=== PATIENT | male | born 1975 | race Caucasian/White ===

== ENCOUNTER 2025-02-19 12:39 | Observation (INO) | payer BC, SELFPAY ==
[2025-02-19] VITALS (7 sets, daily range): BP systolic 135–156; BP diastolic 36–96; PULSE 64–95; RESP 16–18; TEMP 36.3–37.2; O2SAT 18–99; BMI 28.0; BMI 27.8
--- NOTE | 2025-02-19 12:52 | EDS_ITS ---
HPI History of Present Illness Chief Complaint: Substance Abuse Narrative Narrative: 49-year-old male presents for detox from alcohol. He states that he drinks 1/5 of hard liquor daily and has so for the last few years. He states has had a problem with alcohol all my life. He has been through detox and rehab previously, but not at this facility. He states his last drink of alcohol was late last night/early this morning. He does not feel shaky and is asymptomatic. He presents with his for alcohol detox. He denies use of other substances. No illicit drug use, non-smoker. PFSH PFSH Allergy/AdvReac Type Severity Reaction Status Date / Time No Known Allergies Allergy Verified 02/19/25 12:40 Social History Smoking Status: Never smoker ROS ROS ED ROS Narrative Negative review of systems, no chest pain, no shortness of breath, no shakiness. No abdominal pain, no nausea or vomiting. No fevers or chills. EXAM Physical Exam Narrative Exam Narrative: Afebrile. Vital signs noted. Nontoxic-appearing. Mild conjunctival injection bilaterally. Cardiovascular examination reveals a regular rate and rhythm, no tachycardia. Lungs are clear to auscultation bilaterally. Abdomen soft, nontender, with normoactive bowel sounds. No guarding or rebound. Neurological examination is nonfocal and nonlateralizing, moves all extremities. No signs of active withdrawal. Const Vital Signs: 02/19/25 12:41 02/19/25 12:51 Temperature 97.4 F L 98.6 F Temperature Source Temporal Oral Pulse Rate 95 86 Respiratory Rate 18 16 Blood Pressure 144/93 H 144/96 H Blood Pressure Mean 110 112 Blood Pressure Source Monitor Blood Pressure Position Sitting Blood Pressure Location Right Arm Pulse Ox 96 98 Oxygen Delivery Method Room Air Room Air MDM MDM MDM Narrative Medical decision making narrative: I do not feel that differential diagnosis is applicable in this case. There are no signs of active withdrawal on his physical examination. Medical screening labs will be obtained. His gives further history that he was in a detox facility 2 weeks ago in [place]. He was there for a week. He was released on Monday with the understanding that he would return on Monday to be sent to rehabilitation. However, she states that whoever he spoke with at that facility and he decided that he did not need rehab and was released back home on Monday and spent the week drinking alcohol. I reviewed his initial laboratory work which has returned thus far. He has normal white count of 5.6 with hemoglobin 15.2 and platelet count normal at 393. I discussed patient with Dr. Bryan for admission to the medical surgical floor. Disposition is admit in stable condition. History & Record Review Discussion w/independent historian: Patient Lab Data Attestation: I reviewed the patient's lab results. Labs: Laboratory Results - last 24 hr 02/19/25 13:11 WBC 5.6 RBC 4.74 Hgb 15.2 Hct 44.3 MCV 93.5 MCH 32.1 H MCHC 34.3 RDW Std Deviation 44.7 H RDW Coeff of Nhan 13.0 Plt Count 393 MPV 8.4 Immature Gran % (Auto) 0.200 Neut % (Auto) 65.3 Lymph % (Auto) 22.8 Shannon % (Auto) 7.2 Eos % (Auto) 1.4 Baso % (Auto) 3.1 H Absolute Neuts (auto) 3.6 Absolute Lymphs (auto) 1.27 Nucleated RBC % 0 Management Discussion w/another healthcare provider: Hospitalist Discharge Plan Dx/Rx/DC Orders Clinical Impression: Desire for detoxification, Alcoholism Disposition Disposition: Acute Care Hospital [facility]
[2025-02-19 13:24] LABS: Absolute Lymphocyte Count 1.27 X10^3/uL (0.83-4.51); Absolute Neutrophil Count 3.6 X10^3/uL (2.0-7.7); Basophil# 0.17 X10^3/uL; Basophil% 3.1 % (0-1); Eosinophil# 0.08 X10^3/uL; Eosinophils% 1.4 % (0-5); Hematocrit 44.3 % (40-54); Hemoglobin 15.2 g/dL (13.0-16.5); Lymphocyte # 1.27 X10^3/ul (0.83-4.51); Lymphocyte % 22.8 % (19-41); Mean Corp Hgb Conc 34.3 g/dL (32-36); Mean Corpuscular Hgb 32.1 pg (27.0-32.0); Mean Corpuscular Volume 93.5 fL (80-94); Mean Platelet Vol. 8.4 fl (6.2-12.0); Monocyte% 7.2 % (0-10); NRBC Flagged by Analyzer 0 % (0-5); Neutrophil # 3.64 X10^3/uL (2.7-7.7); Neutrophil % 65.3 % (47-70); Platelet Count 393 K/mm3 (150-450); RBC Distribution Width SD 44.7 fl (35.1-43.9); Red Blood Count 4.74 M/mm3 (4.6-6.2); White Blood Count 5.6 K/mm3 (4.4-11.0)
[2025-02-19 14:14] LABS: ALB/GLOB Ratio 1.3 RATIO (0.9-2.4); AST(SGOT) 176 U/L (<=37); Alanine Aminotransfer ALT/SGPT 130 U/L (<=46); Albumin, Serum 4.3 g/dL (3.5-5.0); Alkaline Phosphatase 132 U/L (40-129); Anion Gap 24 (5-15); BUN 10 mg/dL (4-19); BUN/Creat Ratio 16.8 RATIO (10-20); Calcium,Total 9.5 mg/dL (7.6-11.0); Chloride 96 mmol/L (98-108); Creatinine, Serum 0.58 mg/dL (0.70-1.20); EST Glomerular Filtration Rate 121 (>60); Estimated Creatinine Clearance 187.37 ml/min (50-250); Globulin 3.2 g/dL (2.2-4.2); Glucose 79 mg/dL (70-99); Potassium 3.9 mmol/L (3.3-5.1); Protein, Total 7.4 g/dL (5.9-8.4); Sodium Level 139 mmol/L (133-145)
--- NOTE | 2025-02-19 14:17 | HP.PCM.HOS_ITS ---
HPI - General General Date of Admission: 02/19/25 HPI Narrative SAMUEL MCDANIEL, is a 49 M who presents to the hospital requesting detox from alcohol. He was at a detox center about a week and a half ago and was discharged on a Monday and told to follow-up on Monday for inpatient rehab however when he went for his admission to inpatient rehab he was drunk and so they denied him placement. He has been drinking all last week and presented today to go through detox and placement again. He states that he is ready to quit alcohol but he cannot spend 30 days in a rehab center. He has never had any mental health or behavioral health therapy. [facility] Home Medications ?Medication ?Instructions ?Recorded ?Last Taken ?Type naltrexone 50 mg tablet 50 mg PO DAILY CRAVINGS 08/0702/19/25 History Allergy/AdvReac Type Severity Reaction Status Date / Time No Known Allergies Allergy Verified 02/19/25 12:40 Family History no significant family his no significant family history Surgical History (Updated 02/19/25 @ 14:[address] Philipp Bryan MD) H/O umbilical hernia repair Social History Smoking Status: Never smoker ROS Constitutional Constitutional: Denies chills, fatigue, fever(s) or malaise Eyes Eyes: Denies blurry vision ENT HEENT: Denies headache(s) or nasal discharge Cardiovascular Cardiovascular: Denies chest pain, dyspnea on exertion or syncope Respiratory/Chest Respiratory/Chest: Denies cough, shortness of breath at rest or shortness of breath with exertion Gastrointestinal Gastrointestinal: Denies constipation, diarrhea, nausea or vomiting Genitourinary Genitourinary: Denies dysuria Neurologic Neurologic: Denies focal weakness, numbness or tremor(s) Psychiatric Psychiatric: Reports anxiety; Denies depression Vital Signs Vital Signs Vital Signs: 02/19/25 12:41 02/19/25 12:51 02/19/25 13:39 Temperature 97.4 F L 98.6 F 98.7 F Temperature Source Temporal Oral Oral Pulse Rate 95 86 64 Respiratory Rate 18 16 18 Blood Pressure 144/93 H 144/96 H 149/61 H Blood Pressure Mean 110 112 90 Blood Pressure Source Monitor Blood Pressure Position Sitting Blood Pressure Location Right Arm Pulse Ox 96 98 98 Oxygen Delivery Method Room Air Room Air Room Air 02/19/25 14:00 Temperature Temperature Source Pulse Rate Respiratory Rate Blood Pressure Blood Pressure Mean Blood Pressure Source Blood Pressure Position Blood Pressure Location Pulse Ox 99 Oxygen Delivery Method Room Air Weight Weight: 207 lb 1.6 oz Body Mass Index (BMI) 28.0 Physical Exam Narrative General: Alert, Oriented x3, Cooperative, restless HEENT: Atraumatic, PERRLA, EOMI, Normocephalic Oral: Moist Mucosa Neck: Supple, No JVD Lungs: Clear to auscultation, Normal air movement, No rhonchi, No wheeze, No rales Cardiovascular: Regular rate, Regular Rhythm, Normal S1, Normal S2, No murmurs Abdomen: Soft, Non Tender, Non-Distended, No Hepato-splenomegaly Extremities: No edema, Capillary Refill Less than 3 Seconds Skin: No rashes, No breakdown Musculoskeletal: No Tenderness to Palpation of Joints or Extremities Neurological: No focal neurological deficits, Motor Exam 5/5 strength throughout, Sensory exam intact to light touch and pain Psych/Mental Status: Flat, anxious, tearful Results Lab / Micro Data 02/19/25 13:11 02/19/25 13:11 Labs: Laboratory Results - last 24 hr 02/19/25 13:11: WBC 5.6, RBC 4.74, Hgb 15.2, Hct 44.3, MCV 93.5, MCH 32.1 H, MCHC 34.3, RDW Std Deviation 44.7 H, RDW Coeff of Nhan 13.0, Plt Count 393, MPV 8.4, Immature Gran % (Auto) 0.200, Neut % (Auto) 65.3, Lymph % (Auto) 22.8, [place] % (Auto) 7.2, Eos % (Auto) 1.4, Baso % (Auto) 3.1 H, Absolute Neuts (auto) 3.6, Absolute Lymphs (auto) 1.27, Nucleated RBC % 0, Sodium 139, Potassium 3.9, C hloride 96 L, Carbon Dioxide 19.0 L, Anion Gap 24 H, BUN 10, Creatinine 0.58 L, Estim Creat Clear Calc 187.37, Est GFR (MDRD) Non-Af 121, BUN/Creatinine Ratio 16.8, Glucose 79, Calcium 9.5, Total Bilirubin 0.90, AST 176 H, ALT 130 H, A lkaline Phosphatase 132 H, Total Protein 7.4, Albumin 4.3, Globulin 3.2, Albumin/Globulin Ratio 1.3, Ethyl Alcohol 153.0 H Assessment & Plan Assessment/Plan (1) Acute alcohol intoxication: PLAN: Plan 1. Alcohol abuse requesting detox/elevated LFTs ? He was to try to get sober this time but he does not want to spend 30 days in an inpatient rehab facility ? Will have him follow-up with 180 to develop a discharge plan ? LFTs are mildly elevated, follow-up as an outpatient likely related to his drinking as he says that he has been drinking the entirety of his adult life ? He drinks about 1/5 of hard liquor a day and his last drink was earlier this morning ? He denies any tobacco abuse or other drugs 2. Report of a pulmonary nodule ? His states that that 2 or 3 months ago the had an x-ray at outside hospital that demonstrated pulmonary nodule ? Discussed the likelihood that it is benign and that he should have repeat imaging in the next 3 to 9 months depending on size of nodule. They will follow-up on outpatient basis DVT: Ambulation 60 minutes was spent on direct patient care, including documentation as well as chart review and collaboration with colleagues Charges/Coding Visit Charges Inpatient E&M: 75690 Init Hosp L2
[2025-02-19] MEDS: Phenobarbital 32.4 MG Tablet 64.8 MG PO ×2 (16:40→20:46)
[2025-02-19] MEDS: hydrOXYzine PAM 25 MG Capsule 50 MG PO (18:28)
[2025-02-19] MEDS: Gabapentin 300 MG Capsule PO (20:47)
[2025-02-19] MEDS: traZODone 100 MG Tablet PO (20:47)
[2025-02-20] MEDS: Phenobarbital 32.4 MG Tablet 64.8 MG PO ×6 (00:50→20:10)
[2025-02-20 00:51] VITALS: BP 107/65; PULSE 56; RESP 16; TEMP 36.6; O2SAT 99
[2025-02-20 04:18] VITALS: BP 116/75; PULSE 52; RESP 16; TEMP 36.5; O2SAT 93
[2025-02-20 08:00] VITALS: BP 102/74; PULSE 52; RESP 15; TEMP 36.4; O2SAT 95
[2025-02-20] MEDS: Thiamine Hydrochloride 100 MG Tablet PO (08:32)
[2025-02-20] MEDS: Folic Acid 1 MG Tablet PO (08:32)
[2025-02-20 09:52] LABS: Amphetamine Urine NEGATIVE (<1000 ng/mL); Barbiturate Urine PRESUMPTIVE POSITIVE (< 200 ng/mL); Benzodiazepine Urine NEGATIVE (< 200 ng/mL); Buprenorphine Urine NEGATIVE (< 200 ng/mL); Cocaine Urine NEGATIVE (< 300 ng/mL); Fentanyl, Urine NEGATIVE; Methadone Urine NEGATIVE (< 300 ng/mL); Opiates Urine NEGATIVE (< 300 ng/mL); Oxycodone, Urine NEGATIVE (< 100 ng/mL); PCP Urine NEGATIVE (< 25 ng/mL); THC Urine PRESUMPTIVE POSITIVE (< 50 ng/mL)
--- NOTE | 2025-02-20 14:00 | CHAPLAIN ---
Type of Pastoral Visit _x__ Initial Visit ___ Follow-up Visit ___ On-call Visit ___ General Patient Visit ___ Spiritual Assessment ___ Family Conference ___ Bereavement ___ Rapid Response ___ Code Blue ___ Other (describe below) Pastoral Care Referral From _x__ Patient ___ Family ___ Nurse ___ Physician ___ Calender Let Off Operator ___ Visitor Services Technician ___ Other (describe below) Sacrament/Intervention _x__ Active listening ___ Anointing ___ Taoist ___ Bereavement ___ Communion ___ Clotilde exploration ___ _x__ Life review ___ Prayer ___ Reconciliation ___ Sacrament of Sick _x__ Supportive presence ___ Wedding ___ Other (describe below) Pastoral Comments patient is welcoming of company and admits to need for detox after trying to do so at home; pt has a supportive that drove him here; pt expresses desire to remain sober but has a limited plan for what is next; pt states that he is not jain and does not consider spiritual help; words of encouragement and active presence given to show support for this patient; good conversation with honesty and care
--- NOTE | 2025-02-20 15:09 | PCM.PN.HOSP ---
Reason for Visit Reason for Visit: Diagnoses Alcohol use, unspecified with intoxication, unspecified (02/19/25) Subjective Subjective Patient reports he is feeling better than he was yesterday, is presently on the phenobarb taper and is tolerating that well Objective Data Objective Data Vital Signs: Vital Signs Temp Pulse Resp BP Pulse Ox O2 Del Method 97.6 F L 52 L 15 102/74 95 Room Air 02/20/25 08:00 02/20/25 08:00 02/20/25 08:00 02/20/25 08:00 02/20/25 08:00 02/20/25 08:38 Oxygen Delivery Method Room Air Weight: 92.9 kg Body Mass Index (BMI) 27.8 Intake & Output: Intake and Output for Last 24 Hours 02/18/25 02/19/25 02/20/25 23:59 23:59 23:59 Intake Total 800 / 800 Balance 800 / 800 Lab / Micro Data 02/19/25 13:11 02/19/25 13:11 Labs: Laboratory Results - last 24 hr 02/19/25 09:05: Urine Opiates Screen NEGATIVE, U Buprenorphine Qual NEGATIVE, Ur Oxycodone Screen NEGATIVE, Urine Methadone Screen NEGATIVE, Urine Fentanyl Screen NEGATIVE, Ur Barbiturates Screen PRESUMPTIVE POSITIVE, Ur Phencyclidine Scrn NEGATIVE, Ur Amphetamines Screen NEGATIVE, U Benzodiazepines Scrn NEGATIVE, Urine Cocaine Screen NEGATIVE, U Cannabinoids Screen PRESUMPTIVE POSITIVE Physical Exam Narrative General: Alert, oriented, no apparent distress HEENT: Atraumatic, normocephalic Eyes: extraocular movements grossly intact Neck: Supple Respiratory: normal respiratory effort Cardiovascular: no edema appreciated GI: nondistended Extremities: Moving all extremities Neuro: No overt focal neurological deficits Psych: Cooperative Assessment & Plan Assessment/Plan (1) Acute alcohol intoxication: PLAN: Plan 1. Alcohol abuse requesting detox/elevated LFTs ? He was to try to get sober this time but he does not want to spend 30 days in an inpatient rehab facility ? Will have him follow-up with 180 to develop a discharge plan ? LFTs are mildly elevated, follow-up as an outpatient likely related to his drinking as he says that he has been drinking the entirety of his adult life ? He drinks about 1/5 of hard liquor a day and his last drink was earlier this morning ? He denies any tobacco abuse or other drugs -02/20: Patient tolerating phenobarb taper, he expressed interest in Vivitrol at discharge, anticipate DC in 1 to 2 days pending patient progress with phenobarb taper and symptoms 2. Report of a pulmonary nodule ? His states that that 2 or 3 months ago the had an x-ray at outside hospital that demonstrated pulmonary nodule ? Discussed the likelihood that it is benign and that he should have repeat imaging in the next 3 to 9 months depending on size of nodule. They will follow-up on outpatient basis -02/20: Outpatient follow-up DVT: Ambulation Charges/Coding Visit Charges Inpatient E&M: 72480 Subs Hosp L1
[2025-02-20 16:00] VITALS: BP 129/74; PULSE 62; RESP 15; TEMP 36.7; O2SAT 98
[2025-02-20 20:07] VITALS: BP 114/79; PULSE 69; RESP 16; TEMP 36.8; O2SAT 100
[2025-02-20] MEDS: 0.9% Saline Lock 10 ML Syringe IV (20:10)
[2025-02-20] MEDS: traZODone 100 MG Tablet PO (20:32)
[2025-02-21] MEDS: Phenobarbital 32.4 MG Tablet 64.8 MG PO ×4 (00:42→12:20)
[2025-02-21 00:43] VITALS: BP 97/72; PULSE 66; RESP 16; TEMP 36.6; O2SAT 95
[2025-02-21 04:18] VITALS: BP 111/78; PULSE 53; RESP 16; TEMP 36.6; O2SAT 95
[2025-02-21 06:36] LABS: ALB/GLOB Ratio 1.5 RATIO (0.9-2.4); AST(SGOT) 79 U/L (<=37); Alanine Aminotransfer ALT/SGPT 72 U/L (<=46); Albumin, Serum 3.7 g/dL (3.5-5.0); Alkaline Phosphatase 108 U/L (40-129); Anion Gap 11 (5-15); BUN 9 mg/dL (4-19); BUN/Creat Ratio 13.4 RATIO (10-20); Calcium,Total 9.3 mg/dL (7.6-11.0); Carbon Dioxide 29.8 mmol/L (21.0-32.0); Chloride 96 mmol/L (98-108); Creatinine, Serum 0.69 mg/dL (0.70-1.20); EST Glomerular Filtration Rate 115 (>60); Estimated Creatinine Clearance 145.27 ml/min (50-250); Globulin 2.5 g/dL (2.2-4.2); Glucose 95 mg/dL (70-99); Potassium 4.3 mmol/L (3.3-5.1); Protein, Total 6.2 g/dL (5.9-8.4); Sodium Level 137 mmol/L (133-145)
[2025-02-21 08:00] VITALS: BP 110/83; PULSE 59; RESP 12; TEMP 36.4; O2SAT 94
[2025-02-21] MEDS: Thiamine Hydrochloride 100 MG Tablet PO (08:03)
[2025-02-21] MEDS: Folic Acid 1 MG Tablet PO (08:03)
[2025-02-21 12:18] VITALS: BP 113/73; PULSE 66; RESP 12; TEMP 36.8; O2SAT 96
--- NOTE | 2025-02-21 12:45 | DCINST_ITS ---
Discharge Instructions Diet Discharge Diet: No restrictions DC O2, CPAP, BIPAP needs Home O2 Discharge instructions: No Dressing / Incision Discharge Activity: Return to Normal Activity Follow Up Care Test Results: Test results from this visit will be discussed in further detail at your follow- up appointment, if applicable. Discharge Plan Admission Admit Date/Time: 02/19/25 14:16 Primary Reason for Your Visit: Alcohol detox Attending Provider: Glendy Wilkins Primary Care Provider: Care Physician,No Primary Consulting Providers: Philipp Bryan Instructions Patient Instructions: Alcohol Addiction, Addiction: Your Treatment Options Additional Instructions / Restrictions: - You were given a Vivitrol injection before discharge, please follow-up in the outpatient basis for continued therapy - You would benefit from establishing with a primary care physician on discharge for monitoring of your liver and any health problems moving forward -If you do not have a primary care physician of list of local primary care physicians can be provided for you upon discharge. Please ask for this list prior to discharge Discharge Orders/Prescriptions Prescriptions: Discontinued naltrexone 50 mg tablet 50 mg PO DAILY Referrals / Follow Up: Care Physician,No Primary [Primary Care Provider] - (-If you do not have a primary care physician of list of local primary care physicians can be provided for you upon discharge. Please ask for this list prior to discharge ) Disposition Disposition (needs filled in before D/C Order can be placed): Home, Self Care
--- NOTE | 2025-02-21 12:49 | DS.PCM_ITS ---
Providers Date of Admission: 02/19/25 Date of Discharge: 02/21/25 Primary Care Physician: No Primary Care Phys Reason For Visit: ETOH Diagnosis Discharge Diagnosis (1) Acute alcohol intoxication: Status: Acute Code(s): F10.929 - Alcohol use, unspecified with intoxication, unspecified Plan # Alcohol abuse requesting detox/elevated LFTs #Report of a pulmonary nodule ? His states that that 2 or 3 months ago the had an x-ray at outside hospital that demonstrated pulmonary nodule Hospital Course Summary of Care Provided Minutes Spent on Discharge: 22 Hospital Course: 49-year-old male history of alcohol use presented [facility] ED/08/07 for alcohol detox. He was at a detox center a week and a half prior and was discharged that Monday and told to follow-up on Monday for inpatient rehab however when he went in for his admission he was drunk so they denied him placement. He was drinking all week and decided to come to go through detox again. Patient did well on phenobarb taper and on day of discharge was feeling much better with no new or acute complaints. Patient discharged home in stable condition. Physical Exam Narrative General: Alert, oriented, no apparent distress HEENT: Atraumatic, normocephalic Eyes: extraocular movements grossly intact Neck: Supple Respiratory: normal respiratory effort Cardiovascular: no edema appreciated GI: nondistended Extremities: Moving all extremities Neuro: No overt focal neurological deficits Psych: Cooperative Weight / BMI Weight Weight: 92.9 kg Body Mass Index (BMI) 27.8 ABG / Lab / Microbiology Data 02/19/25 13:11 02/21/25 06:01 Laboratory: Laboratory Results - last 24 hr 02/21/25 06:01: Sodium 137, Potassium 4.3, Chloride 96 L, Carbon Dioxide 29.8, Anion Gap 11, BUN 9, Creatinine 0.69 L, Estim Creat Clear Calc 145.27, Est GFR (MDRD) Non-Af 115, BUN/Creatinine Ratio 13.4, Glucose 95, Calcium 9.3, Total Bilirubin 1.50 H, AST 79 H, ALT 72 H, Alkaline Phosphatase 108, Total Protein 6.2, Albumin 3.7, Globulin 2.5, Albumin/Globulin Ratio 1.5 D/C Instructions Discharge Diet: No restrictions DC O2, CPAP, BIPAP Needs Home O2 Discharge instructions: No Meaningful Use Info Meaningful Use Meaningful Use Diagnoses (Choose all that apply): None applicable Ischemic Stroke Statin Dosing Therapy Reference: STATIN DOSE THERAPY REFERENCE: * Patients > 75 years receive moderate or high dose statin therapy. * Patients 75 years or YOUNGER should receive HIGH intensity statin dose unless contraindicated. You will be required to document reason for non-treatment if statin daily dose does not meet guidelines. HIGH DOSE STATIN THERAPY DAILY Atorvastatin > than or = to 40 mg Rosuvastatin > than or = to 20 mg Amlodipine + Atorvastatin > than or = to 2.5/40 mg Ezetimibe + Simvastatin 10/80 mg Simvastatin 80mg Discharge Plan Admission Admit Date/Time: 02/19/25 14:16 Primary Reason for Your Visit: Alcohol detox Attending Provider: Glendy Wilkins Primary Care Provider: Care Physician,No Primary Consulting Providers: Philipp Bryan Instructions Patient Instructions: Alcohol Addiction, Addiction: Your Treatment Options Additional Instructions / Restrictions: - You were given a Vivitrol injection before discharge, please follow-up in the outpatient basis for continued therapy - You would benefit from establishing with a primary care physician on discharge for monitoring of your liver and any health problems moving forward -If you do not have a primary care physician of list of local primary care physicians can be provided for you upon discharge. Please ask for this list prior to discharge Discharge Orders/Prescriptions Prescriptions: Discontinued naltrexone 50 mg tablet 50 mg PO DAILY Referrals / Follow Up: Care Physician,No Primary [Primary Care Provider] - (-If you do not have a primary care physician of list of local primary care physicians can be provided for you upon discharge. Please ask for this list prior to discharge ) Disposition Disposition (needs filled in before D/C Order can be placed): Home, Self Care Charges/Coding Visit Charges Inpatient E&M: [id number] Disch Hosp
--- NOTE | 2025-02-21 12:58 | ADDICTION ---
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 PT A+Ox4 and participated actively. All assessments completed. PT plans to f/u with AA for and his sponsor for recovery support services. PT did not indicate a need for transportation post d/c from [facility]. He also has requested to receive the Vivitrol shot. He reports he can follow up with his PCP for future shots. He does meet criteria for it upon discharge.
--- NOTE | 2025-02-21 13:43 | PHA.DC.MR.R ---
Pharmacy MD Med Reconciliation Pharmacy Service has performed discharge medication reconciliation for this patient. The patient's discharge medication list was reviewed for discrepancies and discrepancies were resolved. Naltrexone stopped, no medications on discharge.
[2025-02-21] MEDS: Naltrexone Microspheres 380 MG SYRINGE IM (16:26)
[2025-02-21] MEDS: Vivitrol ID Card 1 EACH MC (16:31)
[2025-02-21] MEDS: Vivitrol Administration Needles 1 EACH MC (16:31)
== END 2025-02-21 16:47 | disposition home or self-care (01) | DRG 897 ==
LOC: ED 13:57 → PCU 02-20 06:47
PROVIDERS: Admitting Provider Family Medicine; Emergency Provider Emergency Medicine; Visit Provider Internal Medicine
DX: F10.129 Alcohol abuse with intoxication, unspecified (principal); R79.89 Other specified abnormal findings of blood chemistry; Y90.6 Blood alcohol level of 120-199 mg/100 ml; R91.1 Solitary pulmonary nodule
CPT/HCPCS: 36415; 80053; 80307; 82077; 85025; 96372; 99221; 99284; A4216; G0378